=== PATIENT | female | born 1970 | race Caucasian/White ===

== ENCOUNTER 2022-08-01 11:01 | Emergency (ER) | payer OTHER ==
[2022-08-01 11:17] VITALS: BP 165/104
[2022-08-01 11:35] LABS: BASOPHILS % (AUTO) 0.7 %; EOSINOPHILS # (AUTO) 0.1 10^3/uL (0.0-0.7); EOSINOPHILS % (AUTO) 3.2 %; HCT - HEMATOCRIT 43.7 % (37.0-47.0); HGB - HEMOGLOBIN 14.1 g/dL (12.0-16.0); LYMPHOCYTES # (AUTO) 1.3 10^3/uL (1.5-3.5); LYMPHOCYTES % (AUTO) 30.7 %; MEAN CORPUSCULAR HEMOGLOBIN 29.4 pg (27.0-31.0); MEAN CORPUSCULAR HGB CONC 32.3 g/dL (32.0-36.0); MEAN PLATELET VOLUME 9.9 fL (7.9-10.8); MONOCYTES # (AUTO) 0.3 10^3/uL (0.0-1.0); NEUTROPHILS # (AUTO) 2.6 10^3/uL (1.5-6.6); NEUTROPHILS % (AUTO) 59.2 %; PLT - PLATELET COUNT 204 10^3/uL (130-450); RED CELL DISTRIBUTION WIDTH 12.4 % (12.0-15.0); WHITE BLOOD COUNT 4.4 x10^3/uL (4.8-10.8)
--- NOTE | 2022-08-01 11:44 | XRAY Report ---
PROCEDURE: Chest 1 View X-Ray INDICATIONS: Chest pain TECHNIQUE: One view of the chest was acquired. COMPARISON: None. FINDINGS: Surgical changes and devices: None. Lungs and pleura: No pleural effusions or pneumothorax. Lungs are clear. Mediastinum: Mediastinal contours appear normal. Heart size is normal. Bones and chest wall: No suspicious bony lesions. Overlying soft tissues appear unremarkable. IMPRESSION: Normal chest Reviewed by: Philippe Quick on 08/01/2022 10:43 AM [facility] Approved by: Philippe Quick on 08/01/2022 10:43 AM [facility] Station ID: [id number]
[2022-08-01 11:54] LABS: ALBUMIN 4.4 g/dL (3.2-5.5); ALBUMIN/GLOBULIN RATIO 1.2 (1.0-2.2); BILIRUBIN,TOTAL 0.5 mg/dL (0.2-1.0); CALCIUM 9.9 mg/dL (8.5-10.3); CREATININE 0.9 mg/dL (0.4-1.0); POTASSIUM 3.7 mmol/L (3.5-5.0); TOTAL PROTEIN 8.2 g/dL (6.7-8.2)
--- NOTE | 2022-08-01 12:30 | ED Physician Documentation ---
History of Present Illness - Stated complaint Stated Complaint: HIGH BP - Chief complaint Chief Complaint: Cardiac - History obtained from History obtained from: Patient - Additonal information Additional information: 51-year-old woman always had borderline hypertension, but has not checked her blood pressure in a couple of years. A couple of weeks ago went to the dentist and was high and she has measured it usually in the range of 160-170/110 or so since. She had a very mild episode of chest pressure last night. Lasted an hour. She is asymptomatic now. She has never been on antihypertensives. No other health problems. PD PAST MEDICAL HISTORY - Present Medications Home Medications: Ambulatory Orders Medication Instructions Recorded Confirmed Losartan [Cozaar] 50 mg PO DAILY #90 tablet 08/01/22 - Allergies Allergies/Adverse Reactions: Allergies Allergy/AdvReac Type Severity Reaction Status Date / Time No Known Drug Allergies Allergy Verified 08/01/22 11:17 PD ED PE NORMAL - Vitals Vital signs reviewed: Yes - General General: Alert and oriented X 3, No acute distress - HEENT HEENT: PERRL, EOMI - Neck Neck: Supple, no meningeal sign, No bony TTP - Cardiac Cardiac: RRR, No murmur - Respiratory Respiratory: No respiratory distress, Clear bilaterally - Abdomen Abdomen: Non tender - Extremities Extremities: No edema, No calf tenderness / cord - Neuro Neuro: Alert and oriented X 3, Normal speech Eye Opening: Spontaneous Motor: Obeys Commands Verbal: Oriented GCS Score: 15 - Psych Psych: Normal mood, Normal affect Results - Vitals Vitals: Vital Signs - 24 hr 08/01/22 11:12 Temperature 36.8 C Heart Rate 81 Respiratory 18 Rate Blood Pressure 165/104 H O2 Saturation 99 Oxygen O2 Source Room air - EKG (time done) 1119 EKG releavant findings:: EKG personally interpreted by author of this note. Relevant findings are: Rate: Rate (enter#) (72) Rhythm: NSR [place]: Normal QRS: Low voltage Ischemia: Normal ST segments - Labs Labs: Laboratory Tests 08/01/22 08/01/22 08/01/22 11:32 11:32 11:32 WBC 4.4 L RBC 4.80 Hgb 14.1 Hct 43.7 MCV 91.0 MCH 29.4 MCHC 32.3 RDW 12.4 Plt Count 204 MPV 9.9 Neut # (Auto) 2.6 Lymph # (Auto) 1.3 L [place] # (Auto) 0.3 Eos # (Auto) 0.1 Baso # (Auto) 0.0 Absolute Nucleated RBC 0.00 Nucleated RBC % 0.0 Sodium 143 Potassium 3.7 Chloride 106 Carbon Dioxide 28 Anion Gap 9.0 BUN 12 Creatinine 0.9 Estimated GFR (MDRD) 66 L Glucose 109 H Calcium 9.9 Total Bilirubin 0.5 AST 22 ALT 15 Alkaline Phosphatase 56 Troponin I High Sens < 2.3 L Total Protein 8.2 Albumin 4.4 Globulin 3.8 Albumin/Globulin Ratio 1.2 Lipase 38 - Rads (name of study) 1v cxr Relevant Findings:: Final report received, EMP independent interpretation of test PD Medical Decision Making - ED course ED course: 51-year-old woman who has elevated blood pressure. Multiple readings over the last few weeks. Had a very mild episode of chest pressure last night without ischemic findings on EKG or troponin today. She is having difficulty establishing with a primary care physician so will start antihypertensives pending follow-up. Departure - Departure Disposition: 01 Home, Self Care Clinical Impression: Hypertension Condition: Good Record reviewed to determine appropriate education?: Yes Instructions: DASH Plan Eat Heart Healthy Food, ED Hypertension New Begin Tx Prescriptions: Losartan [Cozaar] 50 mg PO DAILY #90 tablet Comments: We are starting losartan. You can double the dose if your blood pressure stays reliably over 160/110 or so. You should follow a low fat diet and continue cardiac exercise. Follow-up with your new primary care physician as soon as you can. Discharge Date/Time: 08/01/22 12:38
== END 2022-08-01 12:38 | disposition home or self-care (01) ==
LOC: ED 11:01
DX: I10 Essential (primary) hypertension (principal)
CPT/HCPCS: 36415; 80053; 83690; 84484; 85025; 93005; 99284

== ENCOUNTER 2023-03-26 10:15 | Outpatient (CLI) | payer OTHER ==
[2023-03-26 16:15] LABS: CHLAMYDIA TRACHOMATIS DNA NEGATIVE (NEGATIVE); NEISSERIA GONORRHOEAE DNA NEGATIVE (NEGATIVE)
[2023-03-26 17:16] LABS: BACTERIAL VAGINOSIS DNA POSITIVE (NEGATIVE); CANDIDA GLABRATA DNA NEGATIVE (NEGATIVE); CANDIDA GROUP DNA NEGATIVE (NEGATIVE); CANDIDA KRUSEI DNA NEGATIVE (NEGATIVE); TRICHOMONAS VAGINALIS DNA NEGATIVE (NEGATIVE)
[2023-03-28 12:08] LABS: HSV 1 IGG TYPE SPEC <0.91 index (0.00-0.90); HSV 2 IGG TYPE SPEC 1.88 index (0.00-0.90)
== END 2023-03-26 10:30 | disposition home or self-care (01) ==
LOC: LAB.N 10:15
PROVIDERS: ATTEND Registered Nurse
DX: N89.8 Other specified noninflammatory disorders of vagina (principal); R10.2 Pelvic and perineal pain; R10.9 Unspecified abdominal pain; N94.89 Other specified conditions associated with female genital organs and menstrual cycle
CPT/HCPCS: 36415; 81514; 86695; 86696; 87255; 87491; 87591; 87661